=== PATIENT | female | born 2000 | race Caucasian/White ===

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

== ENCOUNTER → 2020-08-17 | Outpatient (CLI) | payer OTHER ==
[2020-08-17 10:34] LABS: BASOPHILS % (AUTO) 1 % (0-1); EOSINOPHILS % (AUTO) 1 % (1-7); LYMPHOCYTES % (AUTO) 29 % (22-44); MEAN CORPUSCULAR HEMOGLOBIN 30.6 pg (27.0-34.8); MEAN CORPUSCULAR HGB CONC 34.2 g/dL (32.4-35.8); MEAN PLATELET VOLUME 8.7 fL (7.4-10.4); MONOCYTES % (AUTO) 7 % (2-9); NEUTROPHILS % (AUTO) 63 % (42-75); PLATELET COUNT 251 x10^3/uL (130-400); RED BLOOD COUNT 4.92 x10^6/uL (3.82-5.3); RED CELL DISTRIBUTION WIDTH 12.6 % (9.6-15.2)
[2020-08-17 10:47] LABS: ALANINE AMINOTRANSFERASE 21 U/L (12-78); ALBUMIN 3.7 g/dL (3.4-5.0); ANION GAP 6 mmol/L (5-15); CALCIUM 8.8 mg/dL (8.5-10.1); CHLORIDE 109 mmol/L (98-107)
[2020-08-17 10:50] LABS: MD NO
[2020-08-17 10:57] LABS: ALKALINE PHOSPHATASE 117 U/L (45-117); BILIRUBIN,TOTAL 0.4 mg/dL (0.2-1.0); CREATININE 0.81 mg/dL (0.55-1.02); FREE T4 (FREE THYROXINE) 0.89 ng/dL (0.76-1.46); TOTAL PROTEIN 7.3 g/dL (6.4-8.2)
== END | disposition home or self-care (01) ==
LOC: LAB 10:23
PROVIDERS: ATTEND Family Medicine
DX: R53.83 Other fatigue (principal)
CPT/HCPCS: 36415; 80053; 84439; 84443; 85025

== ENCOUNTER 2020-10-20 16:07 | Emergency (ER) | payer OTHER ==
[~2020-10-20] VITALS: Ht 180.3 cm; Wt 86.3 kg
[2020-10-20 16:10] VITALS: BP 162/46
--- NOTE | 2020-10-20 16:20 | NUR ---
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
--- NOTE | 2020-10-20 16:38 | NUR ---
PT AMBULATORY TO ROOM 33 W/ C/O L HAND LAC HAPPENED 1 HOUR AGO WHILE PT WAS TRYING TO CUT OPEN A WATERMELON. BLEEDING STOPPED. PT RESTING ON [place]. BELIEVES SHE IS UTD ON TETANUS. PT RESTING ON HOMERO. DAMI.
[2020-10-20] MEDS ORDERED: LIDOCAINE-MPF 1%, 5ML INFIL ONE (17:00)
[2020-10-20] MEDS ORDERED: DIPH,PERTUSS(ACELL),TET VAC/PF 0.5 ML IM-VACC ONE ×2 (17:00→17:38)
[2020-10-20] MEDS ORDERED: LIDOCAINE-MPF 1%, 5ML ONE (17:03)
[2020-10-20] MEDS ORDERED: NEOSPORIN OINT. PKT 1 PACKET ONE (17:37)
== END 2020-10-20 17:47 | disposition home or self-care (01) ==
LOC: ED 17:24
DX: S61.211A Laceration without foreign body of left index finger without damage to nail, initial encounter (principal); E10.9 Type 1 diabetes mellitus without complications; X58.XXXA Exposure to other specified factors, initial encounter; Y93.89 Activity, other specified; Y92.009 Unspecified place in unspecified non-institutional (private) residence as the place of occurrence of the external cause; Y99.8 Other external cause status
CPT/HCPCS: 12042; 90471; 90715

== ENCOUNTER → 2020-11-05 | Outpatient (CLI) | payer OTHER ==
[2020-11-05 08:49] LABS: CHOL/HDL RATIO 3.5; LDL/HDL RATIO 2.2 (0.5-3.0)
== END | disposition home or self-care (01) ==
LOC: LAB 08:25
PROVIDERS: ATTEND Internal Medicine Endocrinology, Diabetes & Metabolism
DX: E10.9 Type 1 diabetes mellitus without complications (principal)
CPT/HCPCS: 36415; 80061; 82043; 82570